=== PATIENT | female | born 1955 | race Hispanic/Latino ===

== ENCOUNTER → 2017-10-17 | Day surgery (SDC) | payer OTHER ==
[2017-10-15 12:47] LABS: BASOPHILS # (AUTO) 0.1 (0.0-0.1); EOSINOPHILS # (AUTO) 0.3 (0.0-0.4); EOSINOPHILS % 4.3 % (0.0-6.0); HEMOGLOBIN 12.7 g/dL (12.0-16.0); LYMPHOCYTES # (AUTO) 2.8 (1.0-3.2); LYMPHOCYTES % 38.2 % (18.0-39.1); MEAN CORPUSCULAR HEMOGLOBIN 28.3 pg (28-32); MEAN CORPUSCULAR HGB CONC 33.4 g/dL (31-35); MEAN CORPUSCULAR VOLUME 84.8 fL (81-99); MONOCYTES # (AUTO) 0.6 (0.2-0.8); MONOCYTES % 8.2 % (4.4-11.3); NEUTROPHILS # (AUTO) 3.5 (2.1-6.9); NEUTROPHILS % 47.9 % (38.7-80.0); PLATELET COUNT 239 x10e3/uL (140-360); RED BLOOD COUNT 4.48 x10e6/uL (3.6-5.1); RED CELL DISTRIBUTION WIDTH 14.5 % (11.7-14.4)
[~2017-10-17] MED LIST: ACETAMINOPHEN 1000 MG/100 ML IV ONE; ASPIR 8181 MG PO; DEXAMETHASONE SOD PHOS INJ 4 MG/ML VIAL ONE; FENTANYL CITRATE/PF 100MCG/2 ML INJ ONE; LIDOCAINE HCL 2% LOCAL INJ 5 ML SDV VIAL INJ ONE; LISINOPRIL2.5 MG PO; MIDAZOLAM HCL 2 MG/2 ML VIAL ONE; ONDANSETRON HCL INJ 2 MG/ML VIAL ONE; PROPOFOL IV EMULSION 10 MG/ML 20 ML VIAL ONE; SEVOFLURANE INHAL SOLN 250 ML PEN BTL ONE
--- NOTE | 2017-10-29 14:12 | Operative Report ---
DATE OF PROCEDURE: October 17, 2017 PASTE MIXER: None PREOPERATIVE DIAGNOSES 1. Postmenopausal bleeding. 2. Thickened endometrium on ultrasonography. POSTOPERATIVE DIAGNOSES 1. Postmenopausal bleeding. 2. Thickened endometrium on ultrasonography. 3. Endometrial polyp. PROCEDURES PERFORMED 1. Hysteroscopy. 2. Dilatation and curettage. 3. Hysteroscopic polypectomy. ANESTHESIA: General. ESTIMATED BLOOD LOSS: Minimal. COMPLICATIONS: None. FINDINGS: The patient had a small anteverted uterus and hysteroscopic findings included a large endometrial polyp. SPECIMENS: Included endometrial curettings, as well as endometrial polyp. INDICATIONS: The patient is a 62-year-old postmenopausal female who was noted to have postmenopausal bleeding. In the office, had an ultrasound which showed thickened irregular endometrium. PROCEDURE NOTE: The risks, benefits and alternatives of the procedure were discussed with the patient and consent was obtained. The patient was taken to the operating room where general anesthesia was obtained. The patient was prepped and draped in the typical sterile fashion in the dorsal lithotomy position. A time out was done. The patient's bladder was drained with a straight catheter prior to the procedure. A weighted speculum was placed in the vagina, and the anterior lip of the cervix was grasped with a single-toothed tenaculum. The cervix was then sequentially dilated with the Hegar dilators in order to advance the TruClear hysteroscope using saline as a distention media. The uterine cavity was explored with the above-noted findings. The TruClear device was then used to morcellate and remove the polyp, as well as endometrium under direct visualization. A sharp curettage was then performed, and all curettings were sent for pathology. A survey of the uterine cavity then revealed a normal appearing and intact cavity. All instruments were removed from the patient's vagina. The tenaculum sites and uterus were noted to be hemostatic. The patient was awakened and brought to the recovery room in stable condition. Job#: [id number] RASHAD
== END | disposition home or self-care (01) ==
LOC: OR 05:31
PROVIDERS: ATTEND Obstetrics & Gynecology Obstetrics
DX: N84.0 Polyp of corpus uteri (principal); I10 Essential (primary) hypertension; E78.5 Hyperlipidemia, unspecified; M54.9 Dorsalgia, unspecified; M54.2 Cervicalgia; K21.9 Gastro-esophageal reflux disease without esophagitis; Z01.810 Encounter for preprocedural cardiovascular examination; Z01.812 Encounter for preprocedural laboratory examination; Z79.82 Long term (current) use of aspirin
CPT/HCPCS: 36415; 58558; 85025; 88305; 93005; J1100; J2001; J2250; J2405

== ENCOUNTER → 2020-12-07 | Day surgery (SDC) | payer BC, OTHER ==
[2020-12-03 14:29] LABS: BASOPHILS # (AUTO) 0.1 (0.0-0.1); EOSINOPHILS # (AUTO) 0.4 (0.0-0.4); EOSINOPHILS % 5.2 % (0.0-6.0); HEMATOCRIT 36.9 % (34.2-44.1); HEMOGLOBIN 11.8 g/dL (12.0-16.0); LYMPHOCYTES # (AUTO) 2.6 (1.0-3.2); MEAN CORPUSCULAR HEMOGLOBIN 27.6 pg (28-32); MEAN CORPUSCULAR VOLUME 86.4 fL (81-99); MONOCYTES # (AUTO) 0.5 (0.2-0.8); MONOCYTES % 6.8 % (4.4-11.3); NEUTROPHILS # (AUTO) 3.8 (2.1-6.9); NEUTROPHILS % 51.5 % (38.7-80.0); PLATELET COUNT 219 x10e3/uL (140-360); RED BLOOD COUNT 4.27 x10e6/uL (3.6-5.1); RED CELL DISTRIBUTION WIDTH 15.3 % (11.7-14.4)
[~2020-12-07] MED LIST changes: -ACETAMINOPHEN 1000 MG/100 ML IV ONE; -DEXAMETHASONE SOD PHOS INJ 4 MG/ML VIAL ONE; -FENTANYL CITRATE/PF 100MCG/2 ML INJ ONE; -LIDOCAINE HCL 2% LOCAL INJ 5 ML SDV VIAL INJ ONE; -MIDAZOLAM HCL 2 MG/2 ML VIAL ONE; +NAPROSYN500 MG PO; +OMEGA 3 1,0001 EACH PO; -ONDANSETRON HCL INJ 2 MG/ML VIAL ONE; -PROPOFOL IV EMULSION 10 MG/ML 20 ML VIAL ONE; -SEVOFLURANE INHAL SOLN 250 ML PEN BTL ONE; +VITAMIN B COMP1 EAC1 PO; +VITAMIN C500 MG PO; +VITAMIN D325 MCG PO
[2020-12-07 10:05] VITALS: BP 131/66
== END | disposition home or self-care (01) ==
LOC: OR 07:24
PROVIDERS: ATTEND Obstetrics & Gynecology
DX: N84.1 Polyp of cervix uteri (principal); R93.89 Abnormal findings on diagnostic imaging of other specified body structures; R87.619 Unspecified abnormal cytological findings in specimens from cervix uteri; R06.02 Shortness of breath; I10 Essential (primary) hypertension; F32.9 Major depressive disorder, single episode, unspecified; Z01.810 Encounter for preprocedural cardiovascular examination; Z01.812 Encounter for preprocedural laboratory examination; Z01.818 Encounter for other preprocedural examination; Z20.822 Contact with and (suspected) exposure to COVID-19; Z79.82 Long term (current) use of aspirin; Z68.35 Body mass index [BMI] 35.0-35.9, adult
CPT/HCPCS: 36415; 58558; 71046; 85025; 88305; 93005; C1758; U0002